=== PATIENT | male | born 2000 | race African-American/Black ===

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

== ENCOUNTER 2021-05-02 10:13 | Emergency (ER) | payer OTHER ==
[~2021-05-02] VITALS: Ht 188 cm; Wt 89.5 kg
[~2021-05-02 10:13] MED LIST changes: +IBUP-1027 PO
[2021-05-02] MEDS ORDERED: IV NORMAL SALINE 1000ML BAG 1,000 ML IV ONE ×2 (10:30→11:15)
[2021-05-02] MEDS ORDERED: levETIRAcetam 1,000 MG in IV DEXTROSE 5% 100ML 100 ML IV ONE (10:30)
[2021-05-02 10:40] LABS: BASO # 0.1 x10^3/uL (0.0-0.2); BASO % 1 % (0-3); EOS # 0.3 x10^3/uL (0.0-0.7); EOS % 3 % (0-3); HEMATOCRIT 43.3 % (39.0-53.0); HEMOGLOBIN 13.9 g/dL (13.0-17.5); LYMPH # 1.9 x10^3/uL (1.0-4.8); LYMPH % 23 % (24-48); MEAN CORPUSCULAR HEMOGLOBIN 28 pg (25-35); MEAN CORPUSCULAR HGB CONC 32 g/dL (31-37); MEAN CORPUSCULAR VOLUME 87 fL (79-100); MONO # 0.7 x10^3/uL (0.0-1.1); MONO % 9 % (0-9); NEUT # 5.5 x10^3/uL (1.8-7.7); NEUT % 65 % (31-73); PLATELET COUNT 327 x10^3/uL (140-400); RED BLOOD COUNT 4.99 x10^6/uL (4.30-5.70); RED CELL DISTRIBUTION WIDTH 13.7 % (11.5-14.5); WHITE BLOOD COUNT 8.4 x10^3/uL (4.0-11.0)
--- NOTE | 2021-05-02 10:56 | PHYS DOC ---
Past Medical History Past Medical History: Asthma Past Surgical History: No Surgical History Smoking Status: Never Smoker Alcohol Use: None Drug Use: None General Adult EDM: Chief Complaint: SEIZURE HPI: HPI: Patient is a 20 year old male who presents with was walking out of a motel with friends when he fell and had some seizure-like activity per the friends. MS states that he then went back inside but it is unclear of why and came back out and fell again. Patient has abrasions to dorsal hands and knees bilaterally. Patient states that he does have a history of seizures with his last seizure being 1 month ago but takes no medications for. His other history is asthma. He is slightly postictal at this time. Patient does have a bloody swollen nose and a very small lip avulsion and left distal eyebrow laceration. Patient states that his tetanus has been in the last 5 years. He states he does have a headache but no dizziness. He rates his pain at an 8 out of 10 at this time. He is answering questions appropriately. Review of Systems: Review of Systems: Constitutional: Denies fever or chills. [] Eyes: Denies change in visual acuity. [] HENT: Denies nasal congestion or sore throat. +Bloody nose[] Respiratory: Denies cough or shortness of breath. [] Cardiovascular: Denies chest pain or edema. [] GI: Denies abdominal pain, nausea, vomiting, bloody stools or diarrhea. [] : Denies dysuria. [] Musculoskeletal: Denies back pain or joint pain. [] Integument: Denies rash. +Abrasion, +lacerations[] Neurologic: + headache, denies focal weakness or sensory changes. =Seizure[] Endocrine: Denies polyuria or polydipsia. [] Lymphatic: Denies swollen glands. [] Psychiatric: Denies depression or anxiety. [] Heart Score: C/O Chest Pain: No Current Medications: Current Medications Medications (Trade) Dose Ordered Sig/Dianne Start Time Stop Time Status Last Admin Dose Admin Levetiracetam 1000 mg/Dextrose 110 ml @ 440 mls/hr 1X ONCE 05/02/21 10:30 05/02/21 10:44 Sodium Chloride 1,000 ml @ 1,000 mls/hr 1X ONCE 05/02/21 10:30 05/02/21 11:29 Allergies: Allergies: Allergies Coded Allergies Type Severity Reaction Last Updated Verified No Known Drug Allergies 05/06/14 No Physical Exam: PE: Constitutional: Well developed, well nourished, no acute distress, non-toxic appearance. [] HENT: Normocephalic, atraumatic, bilateral external ears normal, oropharynx moist, no oral exudates, nose normal. Nasal swelling and tenderness. [] Eyes: PERRLA, EOMI, conjunctiva normal, no discharge. [] Neck: Normal range of motion, no tenderness, supple, no stridor. [] Cardiovascular:Heart rate regular rhythm, no murmur [] Lungs & Thorax: Bilateral breath sounds clear to auscultation [] Abdomen: Bowel sounds normal, soft, no tenderness, no masses, no pulsatile masses. [] Skin: Warm, dry, no erythema, no rash. laceration to left distal brow. Upper lip avulsion. Multiple abrasions to bilateral dorsal hands and knees. [] Back: No tenderness, no CVA tenderness. [] Extremities: No tenderness, no cyanosis, no clubbing, ROM intact, no edema. [] Neurologic: Alert and oriented X 3, normal motor function, normal sensory function, no focal deficits noted. [] Psychologic: Affect normal, judgement normal, mood normal. [] EKG: EK and read by Dr. Diaz is sinus rhythm and no STEMI Radiology/Procedures: Radiology/Procedures: [] Impression: [facility] [address] [place] [address] IMAGING REPORT Signed PATIENT: JOHN LEACH OACCOUNT: [id number] : 2000 LOCATION: ER AGE: 20 SEX: M EXAM STATUS: PRE ER ORD. PHYSICIAN: BART FAY APRN REASON: seizure PROCEDURE: PORTABLE CHEST 1V EXAM: XR CHEST 1V 05/02/2021 10:43 AM CLINICAL INDICATION: Seizure COMPARISON: Chest radiograph 01/17/2018 TECHNIQUE: AP semiupright view of the chest FINDINGS: The heart is normal in size. Lungs are adequately expanded. There is mild scattered atelectasis. No consolidation, pleural effusion, or pneumothorax. No acute osseous abnormality IMPRESSION: Mild scattered atelectasis. No acute abnormality. Electronically signed by: Annamaria Kramer MD (05/02/2021 11:02 AM) [facility] DICTATED and SIGNED BY: ANNAMARIA KRAMER MD DATE: 05/02/21 [id number] [facility] [address] [place] [address] IMAGING REPORT Signed PATIENT: JOHN LEACH OACCOUNT: [id number] : 2000 LOCATION: ER AGE: 20 SEX: M EXAM STATUS: PRE ER ORD. PHYSICIAN: BART FAY APRN REASON: fall, seizure PROCEDURE: CT HEAD AND CERVICAL SPINE WO CT MAXILLOFACIAL WITHOUT CONTRAST, CT HEAD AND C-SPINE WO History: Reason: fall, seizure, facial laceration, bloody nose / Spl. Instructions: / History: Pain Comparison: None. Technique: Noncontrast CT imaging was performed of the head, maxillofacial and cervical spine. Coronal and sagittal reconstructions were performed. Exposure: One or more of the following individualized dose reduction techniques were utilized for this examination: 1. Automated exposure control 2. Adjustment of the mA and/or kV according to patient size 3. Use of iterative reconstruction technique. Findings: Head CT: No intracranial hemorrhage. No mass effect. No hydrocephalus. Extra- axial spaces are unremarkable. Maxillofacial CT: No acute maxillofacial fracture. Anterior frontal soft tissue swelling. Orbits are unremarkable. Left nasal septal deviation and spurring. Paranasal sinuses and mastoid air cells are clear. No acute calvarial fracture. Cervical spine CT: Normal vertebral body height. Normal alignment. No fracture. Soft tissues are unremarkable. Impression: Head CT: 1. No acute intracranial abnormality. Maxillofacial CT: 1. No acute maxillofacial fracture. Cervical spine CT: 1. No acute fracture or subluxation of the cervical spine. Electronically signed by: Buck Mcpherson DO (05/02/2021 11:39 AM) [id number] DICTATED and SIGNED BY: BUCK MCPHERSON DO DATE: 05/02/21 [id number] Course & Med Decision Making: Course & Med Decision Making Pertinent Labs and Imaging studies reviewed. (See chart for details) See HPI. Alert and oriented x4. Superficial abrasions to bilateral dorsal hands and knees. Small laceration 1cm just distal to the left eyebrow. He also has a avulsion to his upper lip, does not efftect actual lip or cross vermilion border, that is nonsuturable. No damage to teeth and all teeth are intact. Did not bite his tongue. Did not lose bowel or bladder. Moving all extremities. No joint laxity or deformities. No extremity deformities or swelling. Slightly postictal but answering questions appropriately. He states he " feels weird". Speaks in full clear sentences. States he has had both of his Covid vaccines but cannot remember what they were. Denies dizziness, vision change, abdominal pain, nausea, vomiting, diarrhea, drug use, cough, chest pain, shortness of air, focal weakness, numbness or tingling, back pain, neck pain. No focal bony spinal tenderness. He is in a c-collar. CT scans show no acute findings. Blood work shows some dehydration. He has p ositive for amphetamines. He got Keppra 1 g through his IV. Patient has gotten 2 L of normal saline. I have written him a prescription for Keppra 500 mg twice daily for the next 7 days. I referred him to Dr. Houston. Patient is alert and oriented x4. Mother at bedside. Laceration repair Location: Distal left eyebrow 1 cm Local anesthesia: None Interrupted sutures/Internal sutures: Dermabond Nerve/ligament/muscle damage: None Cleaning and irrigation: Chlorhexidine and saline The appropriate timeout was taken. The area was prepped and draped in the usual sterile fashion. The wound was copiously irrigated with normal saline and chlorhexidine. Patient tolerated well without complication. Dressing was applied to the area follow-up education is given to observe for signs and symptoms of infection, bleeding and to follow-up promptly if these occur. Patient can return in 48 hours for a wound recheck. Sutures to be removed in 7 to 10 days. [] Rinaon Disclaimer: Ricky Disclaimer: This electronic medical record was generated, in whole or in part, using a voice recognition dictation system. Departure Departure Impression: Primary Impression: Seizure-like activity Additional Impressions: Laceration Abrasion Amphetamine abuse Disposition: 01 HOME / SELF CARE / HOMELESS Condition: STABLE Referrals: JOI MENDOZAPCP) TEDDY ANTONIO MD Patient Instructions: Abrasions, Facial Laceration, Laceration Care, Adult, Seizure, Adult, Stitches, Marisela or Skin Adhesive Strips, [id number] Additional Instructions: Follow-up with your primary care provider. Do not put any creams or ointments over the Dermabond as above break it down. Drink plenty of fluids. If you begin having another seizure, have a severe headache or cannot stop vomiting you need to return to emergency room. Scripts Levetiracetam (KEPPRA) 500 Mg Tablet 1 TAB PO BID for 30 Days, #60 TAB 0 Refills Prov: BART FAY APRN 05/02/21 BART FAY APRN May 02, 2021 10:56
[2021-05-02 10:58] LABS: CREATININE 1.4 mg/dL (0.7-1.3); GFR 77.4; POTASSIUM 4.4 mmol/L (3.5-5.1)
[2021-05-02 11:03] LABS: ALBUMIN 4.4 g/dL (3.4-5.0); ALBUMIN/GLOBULIN RATIO 1.3 (1.0-1.7); TOTAL BILIRUBIN 0.7 mg/dL (0.2-1.0); TOTAL PROTEIN 7.8 g/dL (6.4-8.2)
--- NOTE | 2021-05-02 11:05 | RAD ---
EXAM: XR CHEST 1V 05/02/2021 10:43 AM CLINICAL INDICATION: Seizure COMPARISON: Chest radiograph 01/17/2018 TECHNIQUE: AP semiupright view of the chest FINDINGS: The heart is normal in size. Lungs are adequately expanded. There is mild scattered atelec tasis. No consolidation, pleural effusion, or pneumothorax. No acute osseous abnormality IMPRESSION: Mild scattered atelectasis. No acute abnormality. Electronically signed by: Annamaria Kramer MD (05/02/2021 11:02 AM) [facility]
--- NOTE | 2021-05-02 11:41 | RAD ---
CT MAXILLOFACIAL WITHOUT CONTRAST, CT HEAD AND C-SPINE WO History: Reason: fall, seizure, facial laceration, bloody nose / Spl. Instructions: / History: Pain Comparison: None. Technique: Noncontrast CT imaging was performed of the head, maxillofacial and cervical spine. Mary l and sagittal reconstructions were performed. Exposure: One or more of the following individualized dose reduction techniques were utilized for thi s examination: 1. Automated exposure control 2. Adjustment of the mA and/or kV according to patient size 3. Use of iterative reconstruction technique. Findings: Head CT: No intracranial hemorrhage. No mass effect. No hydrocephalus. Extra-axial spaces are unrema rkable. Maxillofacial CT: No acute maxillofacial fracture. Anterior frontal soft tissue swelling. Orbits are unremarkable. Left nasal septal deviation and spurring. Paranasal sinuses and mastoid air cells are clear. No acute calvarial fracture. Cervical spine CT: Normal vertebral body height. Normal alignment. No fracture. Soft tissues are unremarkable. Impression: Head CT: 1. No acute intracranial abnormality. Maxillofacial CT: 1. No acute maxillofacial fracture. Cervical spine CT: 1. No acute fracture or subluxation of the cervical spine. Electronically signed by: Buck Mcpherson DO (05/02/2021 11:39 AM) [id number]
[2021-05-02 12:13] LABS: BARBITURATES NEG (NEG); BENZODIAZEPINES NEG (NEG); CANNABINOIDS NEG (NEG); COCAINE NEG (NEG); METHADONE NEG (NEG); OPIATES NEG (NEG); PHENCYCLIDINE NEG (NEG)
[2021-05-02] MEDS ORDERED: IBUPROFEN 200 MG TABLET. PO ONE (12:15)
[2021-05-02 12:16] LABS: AMPHETAMINE/METHAMPHETAMINE POS (NEG)
[2021-05-02] MEDS ORDERED: NEOMY/BACITR/POLYMYXIN OINT PACKET. TP ONE ×2 (12:22→12:30)
[2021-05-02] MEDS ORDERED: LEVE500T56 PO (12:43)
[2021-05-02 12:57] VITALS: BP 137/83
== END 2021-05-02 13:17 | disposition home or self-care (01) ==
LOC: ER 10:13
DX: S01.112A Laceration without foreign body of left eyelid and periocular area, initial encounter (principal); S60.512A Abrasion of left hand, initial encounter; S60.511A Abrasion of right hand, initial encounter; S80.212A Abrasion, left knee, initial encounter; S80.211A Abrasion, right knee, initial encounter; R56.9 Unspecified convulsions; F15.10 Other stimulant abuse, uncomplicated; J45.909 Unspecified asthma, uncomplicated; W18.39XA Other fall on same level, initial encounter; Y93.01 Activity, walking, marching and hiking; Y92.89 Other specified places as the place of occurrence of the external cause; Y99.8 Other external cause status
CPT/HCPCS: 12011; 36415; 70450; 70486; 71045; 72125; 80053; 80307; 82550; 82962; 85025; 93005; 96361; 96365; 99285; G0480; J1953; J7030; J7060